=== PATIENT | male | born 1975 | race African-American/Black ===

== ENCOUNTER 2016-05-18 21:07 | Inpatient (IN) | payer OTHER ==
[~2016-05-18] VITALS: Ht 182.9 cm; Wt 129.3 kg
[2016-05-18 22:08] LABS: HEMATOCRIT 42.9 % (38.0-50.0); MCH 25.3 PG (29.0-34.0); MCHC 33.3 G/DL (30.0-36.0); MCV 75.9 FL (86-99); MEAN PLAT.VOLUME 10.7 uM^3 (9.0-12.4); PLATELET COUNT 242 K/uL (156-360); RBC DIS.WIDTH-CV 15.5 % (11.8-14.6); RED BLOOD COUNT 5.65 M/uL (4.00-5.50); WHITE BLOOD COUNT 13.5 K/uL (4.1-10.2)
[2016-05-18 22:23] LABS: CHLORIDE 102 mEq/L (99-109)
[2016-05-18 22:24] LABS: POTASSIUM 3.8 mEq/L (3.7-5.4); SODIUM 144 mEq/L (136-147)
[2016-05-18 22:25] LABS: GLUCOSE 127 mg/dL (70-99)
[2016-05-18 22:27] LABS: ANION GAP 12 MEQ/L (2-14)
[2016-05-18 22:29] LABS: GFR ESTIMATE (CALCULATED) > 59 mL/min/
[2016-05-18 22:30] LABS: UREA NITROGEN (BUN) 8 mg/dL (9-23)
[2016-05-18 22:32] LABS: TROP-I INTERPRETATION NEGATIVE; TROPONIN-I 0.01 ng/mL (0.0-0.30)
[2016-05-18] MEDS ORDERED: MUCINEX1200 MG PO (23:33)
[2016-05-19 02:51] LABS: INTER. NORMALIZED RATIO 1.1; PROTHROMBIN TIME 11.5 (9.2-11.2); PTT 33.6 (25-32)
[2016-05-19 06:25] LABS: TROP-I INTERPRETATION NEGATIVE; TROPONIN-I < 0.01 ng/mL (0.0-0.30)
[2016-05-19 10:27] LABS: ADD MIUA? NO; BILIRUBIN NEGATIVE; BLOOD NEGATIVE; COLOR LT YELLOW ((YELLOW)); GLUCOSE (STRIP) 250; KETONES NEGATIVE; LEUKOCYTES NEGATIVE; NITRITE NEGATIVE; PH, URINE 7.5 (5-8); PROTEIN (STRIP) NEGATIVE; SPECIFIC GRAVITY 1.008 (1.000-1.030); UCUL ADDED? NO
[2016-05-19 13:32] LABS: TROP-I INTERPRETATION NEGATIVE; TROPONIN-I < 0.01 ng/mL (0.0-0.30)
[2016-05-19 15:37] VITALS: BP 141/78
[2016-05-20] VITALS: BP 125/62
[2016-05-20 06:20] LABS: HEMATOCRIT 41.9 % (38.0-50.0); MCH 24.8 PG (29.0-34.0); MCHC 31.7 G/DL (30.0-36.0); MCV 78.2 FL (86-99); MEAN PLAT.VOLUME 10.8 uM^3 (9.0-12.4); PLATELET COUNT 244 K/uL (156-360); RBC DIS.WIDTH-CV 15.2 % (11.8-14.6); RBC DIS.WIDTH-SD 43.3 % (39-53); RED BLOOD COUNT 5.36 M/uL (4.00-5.50); WHITE BLOOD COUNT 10.6 K/uL (4.1-10.2)
[2016-05-20 06:48] LABS: ANION GAP 8 MEQ/L (2-14); CHLORIDE 105 MEQ/L (99-109); GFR ESTIMATE (CALCULATED) > 59 mL/min/; GLUCOSE 205 mg/dL (70-99); POTASSIUM 4.4 MEQ/L (3.7-5.4); SAMPLE HEMOLYSIS CHECK 0; SAMPLE ICTERIC CHECK 0; SAMPLE LIPEMIA CHECK 0; SODIUM 141 MEQ/L (136-147); UREA NITROGEN (BUN) 10 mg/dL (9-23)
[2016-05-20 10:20] VITALS: BP 137/82
[2016-05-20 13:32] VITALS: BP 157/72
[2016-05-20 18:53] VITALS: BP 128/74
[2016-05-21] VITALS (7 sets, daily range): BP systolic 127–169; BP diastolic 68–84
[2016-05-22] VITALS: BP 156/52
[2016-05-22 03:59] VITALS: BP 133/85
[2016-05-22 07:16] VITALS: BP 150/91
[2016-05-22] MEDS ORDERED: PREDNISONE20 MG PO (10:56)
[2016-05-22] MEDS ORDERED: TYLENOL REGULA325 MG PO (10:56)
[2016-05-22] MEDS ORDERED: COMBIVENT RESPIM4 GM IH (10:57)
[2016-05-22] MEDS ORDERED: AMOXICILLIN500 M1 PO (10:58)
[2016-05-22 11:10] VITALS: BP 138/84
[2016-05-22 11:17] VITALS: BP 126/71
== END 2016-05-22 17:54 | disposition home or self-care (01) | DRG 192 ==
LOC: EME 21:07 → 5EAST 05-19 02:09 → EDOF 05-19 02:09 → 5EAST 05-19 15:26
PROVIDERS: Hospitalist
PROC: 5A09357 Assistance with Respiratory Ventilation, Less than 24 Consecutive Hours, Continuous Positive Airway Pressure (ICD-10-PCS; principal; 2016-05-22)
DX: J44.0 Chronic obstructive pulmonary disease with (acute) lower respiratory infection (principal); J44.1 Chronic obstructive pulmonary disease with (acute) exacerbation; G47.33 Obstructive sleep apnea (adult) (pediatric); J20.9 Acute bronchitis, unspecified; F17.200 Nicotine dependence, unspecified, uncomplicated; R60.0 Localized edema
CPT/HCPCS: 71010; 71020; 80048; 81003; 82948; 83605; 83880; 84484; 85027; 85610; 85730; 87040; 87070; 87205; 93005; 93306; 93970; 94640; 94640 76; 94660; 94799; 99202; 99281; 99285; J0696; J1650; J1956; J7050; J7512